=== PATIENT | male | born 1955 | race Caucasian/White ===

== ENCOUNTER 2022-01-12 14:33 | Emergency (ER) | payer MEDICARE | END 2022-01-12 16:28 | disposition home or self-care (01) | LOC: JP.ED 14:33 | DX: R60.0 Localized edema (principal); E83.51 Hypocalcemia; E11.22 Type 2 diabetes mellitus with diabetic chronic kidney disease; N18.5 Chronic kidney disease, stage 5; Z88.8 Allergy status to other drugs, medicaments and biological substances; Z79.899 Other long term (current) drug therapy; Z79.82 Long term (current) use of aspirin | CPT/HCPCS: 36415; 80048; 85025; 99283 ==